=== PATIENT | male | born 1970 | race Hispanic/Latino ===

== ENCOUNTER 2022-01-29 19:39 | Observation (INO) | payer MEDICAID, OTHER ==
[~2022-01-29] VITALS: Ht 180.3 cm; Wt 88.1 kg
[2022-01-29 20:21] LABS: BASOPHILS % (AUTO) 0.5 % (0.0-5.0); EOSINOPHILS % (AUTO) 1.6 % (0.0-8.0); HEMATOCRIT 24.2 % (42-54); LYMPHOCYTES % (AUTO) 9.7 % (21.0-51.0); MEAN CORPUSCULAR HEMOGLOBIN 34.7 pg (27.0-33.0); MEAN CORPUSCULAR HGB CONC 34.7 g/dL (32.0-36.0); MONOCYTES % (AUTO) 9.7 % (3.0-13.0); NEUTROPHILS % (AUTO) 75.5 % (40.0-77.0); PLATELET COUNT (AUTO) 89 K/uL (130-400); RED BLOOD CELL COUNT(AUTO) 2.42 MIL/uL (4.50-6.20); RED CELL DISTRIBUTION WIDTH 14.7 % (11.0-15.5); WHITE BLOOD COUNT (AUTO) 12.4 K/uL (4.8-10.8)
[2022-01-29 20:29] LABS: CARBON DIOXIDE 22 mmol/L (21-32); CHLORIDE 98 mmol/L (101-111); CREATININE 1.9 mg/dL (0.5-1.5); GLOMERULAR FILTR. RATE CALC 40 mL/min (>60); GLUCOSE,RANDOM 109 mg/dL (70-105); POTASSIUM 3.5 mmol/L (3.5-5.1); SODIUM SERUM 129 mmol/L (136-145); UREA NITROGEN, BLOOD 27 mg/dL (7-18)
[2022-01-29 20:34] LABS: ALANINE AMINOTRANSFERASE 18 U/L (12-78); ALBUMIN 1.3 g/dL (3.5-5.0); ASPARTATE AMINOTRANSFERASE 52 U/L (10-37); TOTAL PROTEIN, SERUM 6.9 g/dL (6.0-8.3)
[2022-01-29 20:35] LABS: AMMONIA 86 umol/L (11-32)
[2022-01-29 21:14] LABS: PLATELET MORPHOLOGY DECREASED
[2022-01-29] MEDS ORDERED: HEPARIN 5,000 UNIT VIAL SQ SCH (21:30)
[2022-01-29] MEDS ORDERED: ASPIRIN 325MG EC TAB PO ONE (21:30)
[2022-01-29 22:00] LABS: APPEARANCE,URINE Cloudy (CLEAR); BILIRUBIN,URINE Small (NEGATIVE); COLOR,URINE Dark Yellow (YELLOW); GLUCOSE, URINE (UA) Negative (NEGATIVE); KETONES,URINE Negative (NEGATIVE); LEUKOCYTE ESTERASE ,URINE Trace (NEGATIVE); NITRATE,URINE Negative (NEGATIVE); OCCULT BLOOD,URINE Large (NEGATIVE); PH,URINE 5.5 (5.0-8.0); PROTEIN,URINE Trace mg/dL (NEGATIVE)
[2022-01-29 22:05] LABS: BACTERIA,URINE Few /HPF (None Seen)
[2022-01-29 22:06] LABS: SQUAMOUS EPITHELIAL CELL,UR Rare /HPF (0-2)
[2022-01-29] MEDS ORDERED: DOCUSATE SODIUM 100 MG CAP PO PRN (22:30)
[2022-01-29] MEDS ORDERED: ACETAMINOPHEN 650 MG SUPPOSITORY RC PRN (22:30)
[2022-01-29] MEDS ORDERED: ONDANSETRON 4MG INJ IVP PRN (22:30)
[2022-01-29] MEDS ORDERED: LACTULOSE 20 GM/30 ML UDCUP PO PRN (22:30)
[2022-01-29] MEDS ORDERED: LABETALOL 20MG SYG IV PRN (22:30)
[2022-01-29] MEDS ORDERED: HYDRALAZINE 20MG/ML VIAL IV PRN (22:30)
[2022-01-29] MEDS ORDERED: TEMAZEPAM 15 MG CAPSULE PO PRN (22:30)
[2022-01-29] MEDS ORDERED: CLONIDINE HCL 0.1 MG TABLET PO PRN (22:30)
[2022-01-29] MEDS ORDERED: ACETAMINOPHEN 325 MG TAB PO PRN (22:30)
[2022-01-29] MEDS: ATORVASTATIN 10 MG TABLET PO SCH (23:22)
[2022-01-29 23:40] VITALS: BP 128/68
[2022-01-30] VITALS (9 sets, daily range): BP systolic 97–122; BP diastolic 55–69
[2022-01-30] MEDS ORDERED: TORS10TA18 PO (01:08)
[2022-01-30] MEDS ORDERED: FERR325T29 PO (01:08)
[2022-01-30] MEDS ORDERED: SPIR50TA5 PO (01:08)
[2022-01-30] MEDS ORDERED: LACT10SO5 PO (01:08)
[2022-01-30 01:47] LABS: AMPHET/METH SCREEN,URINE NEGATIVE (NEGATIVE); BARBITURATE SCREEN, URINE NEGATIVE (NEGATIVE); BENZODIAZEPINES SCREEN,URINE NEGATIVE (NEGATIVE); CANNABINOID SCREEN,URINE NEGATIVE (NEGATIVE); COCAINE SCREEN,URINE NEGATIVE (NEGATIVE); OPIATE SCREEN,URINE POSITIVE (NEGATIVE); PHENCYCLIDINE SCREEN,URINE NEGATIVE (NEGATIVE)
[2022-01-30 04:13] LABS: BASOPHILS % (AUTO) 0.6 % (0.0-5.0); EOSINOPHILS % (AUTO) 1.9 % (0.0-8.0); HEMATOCRIT 23.2 % (42-54); LYMPHOCYTES % (AUTO) 14.4 % (21.0-51.0); MEAN CORPUSCULAR HEMOGLOBIN 34.2 pg (27.0-33.0); MEAN CORPUSCULAR HGB CONC 34.1 g/dL (32.0-36.0); MEAN CORPUSCULAR VOLUME 100.4 fL (79-99); MONOCYTES % (AUTO) 10.1 % (3.0-13.0); NEUTROPHILS % (AUTO) 70.9 % (40.0-77.0); PLATELET COUNT (AUTO) 80 K/uL (130-400); RED BLOOD CELL COUNT(AUTO) 2.31 MIL/uL (4.50-6.20); RED CELL DISTRIBUTION WIDTH 14.7 % (11.0-15.5); WHITE BLOOD COUNT (AUTO) 10.6 K/uL (4.8-10.8)
[2022-01-30 04:23] LABS: INR 1.67 (0.85-1.15); PROTHROMBIN TIME 17.7 SEC (9.6-11.6)
[2022-01-30 04:25] LABS: PARTIAL THROMBOPLASTIN TIME 38.2 SEC (26.3-35.5)
[2022-01-30 04:39] LABS: MAGNESIUM 1.3 mg/dL (1.80-2.40); PHOSPHORUS 3.4 mg/dL (2.5-4.9); THYROID STIMULATING HORMONE 4.79 uIU/mL (0.36-3.74)
[2022-01-30 05:06] LABS: B-TYPE NATRIURETIC PEPTIDE 846 pg/mL (0-100)
[2022-01-30] MEDS: LACTULOSE 20 GM/30 ML UDCUP PO SCH ×2 (06:00→13:52)
[2022-01-30] MEDS: PANTOPRAZOLE 40 MG/VIAL IVP SCH ×2 (09:02→21:20)
[2022-01-30] MEDS: ASPIRIN 81 MG EC TAB PO SCH (09:02)
[2022-01-30] MEDS: FOLIC ACID 1 MG TABLET PO SCH (09:03)
[2022-01-30] MEDS: FUROSEMIDE 40 MG TABLET PO SCH (09:03)
[2022-01-30] MEDS: TICAGRELOR 90 MG TABLET PO SCH ×2 (09:03→21:20)
[2022-01-30] MEDS ORDERED: LACTULOSE 20 GM/30 ML UDCUP PO PRN (17:00)
[2022-01-30] MEDS: ATORVASTATIN 10 MG TABLET PO SCH (21:20)
[2022-01-30] MEDS: CEFTRIAXONE 2GM VIAL IVP SCH (21:20)
[2022-01-31] VITALS (20 sets, daily range): BP systolic 100–120; BP diastolic 43–66
[2022-01-31 04:20] LABS: BASOPHILS % (AUTO) 0.4 % (0.0-5.0); EOSINOPHILS % (AUTO) 0.5 % (0.0-8.0); HEMATOCRIT 23.8 % (42-54); LYMPHOCYTES % (AUTO) 7.7 % (21.0-51.0); MEAN CORPUSCULAR HEMOGLOBIN 33.6 pg (27.0-33.0); MEAN CORPUSCULAR HGB CONC 33.6 g/dL (32.0-36.0); MONOCYTES % (AUTO) 9.5 % (3.0-13.0); NEUTROPHILS % (AUTO) 80.3 % (40.0-77.0); PLATELET COUNT (AUTO) 78 K/uL (130-400); RED BLOOD CELL COUNT(AUTO) 2.38 MIL/uL (4.50-6.20); RED CELL DISTRIBUTION WIDTH 14.8 % (11.0-15.5); WHITE BLOOD COUNT (AUTO) 12.7 K/uL (4.8-10.8)
[2022-01-31 04:50] LABS: ALBUMIN 1.1 g/dL (3.5-5.0); CREATININE 2.1 mg/dL (0.5-1.5); MAGNESIUM 1.5 mg/dL (1.80-2.40); POTASSIUM 4.2 mmol/L (3.5-5.1); TOTAL PROTEIN, SERUM 6.2 g/dL (6.0-8.3)
[2022-01-31] MEDS: ASPIRIN 81 MG EC TAB PO SCH (08:43)
[2022-01-31] MEDS: FOLIC ACID 1 MG TABLET PO SCH (08:43)
[2022-01-31] MEDS: FUROSEMIDE 40 MG TABLET PO SCH (08:43)
[2022-01-31] MEDS: PANTOPRAZOLE 40 MG/VIAL IVP SCH ×2 (08:43→20:42)
[2022-01-31] MEDS: TICAGRELOR 90 MG TABLET PO SCH ×2 (08:43→20:43)
[2022-01-31] MEDS ORDERED: MAGNESIUM 2GM PREMIX 50ML 50 ML IV SCH (14:30)
[2022-01-31] MEDS ORDERED: LEVOFLOXACIN 500 MG/D5W 100 ML 100 ML IV ONE (16:00)
[2022-01-31] MEDS ORDERED: LEVOFLOXACIN 500 MG/D5W 100 ML 100 ML IV SCH (16:00)
[2022-01-31] MEDS: CEFTRIAXONE 2GM VIAL IVP SCH (20:42)
[2022-01-31] MEDS: ATORVASTATIN 10 MG TABLET PO SCH (20:43)
[2022-02-01 04:00] VITALS: BP 114/62
[2022-02-01 04:03] VITALS: BP 123/56
[2022-02-01 04:06] VITALS: BP 116/64
[2022-02-01 04:55] LABS: BASOPHILS % (AUTO) 0.3 % (0.0-5.0); EOSINOPHILS % (AUTO) 0.8 % (0.0-8.0); HEMATOCRIT 24.8 % (42-54); LYMPHOCYTES % (AUTO) 6.9 % (21.0-51.0); MEAN CORPUSCULAR HEMOGLOBIN 33.9 pg (27.0-33.0); MEAN CORPUSCULAR HGB CONC 33.1 g/dL (32.0-36.0); MEAN CORPUSCULAR VOLUME 102.5 fL (79-99); MONOCYTES % (AUTO) 6.7 % (3.0-13.0); NEUTROPHILS % (AUTO) 83.9 % (40.0-77.0); PLATELET COUNT (AUTO) 84 K/uL (130-400); RED BLOOD CELL COUNT(AUTO) 2.42 MIL/uL (4.50-6.20); RED CELL DISTRIBUTION WIDTH 14.9 % (11.0-15.5); WHITE BLOOD COUNT (AUTO) 12.1 K/uL (4.8-10.8)
[2022-02-01 05:18] LABS: CREATININE 1.8 mg/dL (0.5-1.5); MAGNESIUM 1.9 mg/dL (1.80-2.40); POTASSIUM 3.5 mmol/L (3.5-5.1); TOTAL PROTEIN, SERUM 6.2 g/dL (6.0-8.3)
[2022-02-01 07:51] VITALS: BP 97/53
[2022-02-01 07:52] VITALS: BP 114/55
[2022-02-01] MEDS: TICAGRELOR 90 MG TABLET PO SCH (08:49)
[2022-02-01] MEDS: ASPIRIN 81 MG EC TAB PO SCH (08:49)
[2022-02-01] MEDS: FOLIC ACID 1 MG TABLET PO SCH (08:49)
[2022-02-01 08:50] VITALS: BP 120/65
[2022-02-01] MEDS: FUROSEMIDE 40 MG TABLET PO SCH (08:50)
[2022-02-01] MEDS: PANTOPRAZOLE 40 MG/VIAL IVP SCH (08:50)
== END 2022-02-01 09:20 | disposition left against medical advice (07) ==
LOC: EDH 19:39 → EDHIP 19:40 → 4BH 22:47
PROVIDERS: ADMIT Internal Medicine Critical Care Medicine; ATTEND Internal Medicine Critical Care Medicine
DX: I21.4 Non-ST elevation (NSTEMI) myocardial infarction (principal); Z20.822 Contact with and (suspected) exposure to COVID-19; I34.0 Nonrheumatic mitral (valve) insufficiency; I35.1 Nonrheumatic aortic (valve) insufficiency; N17.9 Acute kidney failure, unspecified; K74.60 Unspecified cirrhosis of liver; E72.20 Disorder of urea cycle metabolism, unspecified; D53.9 Nutritional anemia, unspecified; E87.1 Hypo-osmolality and hyponatremia; D61.818 Other pancytopenia; D72.829 Elevated white blood cell count, unspecified; E87.8 Other disorders of electrolyte and fluid balance, not elsewhere classified; R50.9 Fever, unspecified; R53.1 Weakness; I10 Essential (primary) hypertension; D63.8 Anemia in other chronic diseases classified elsewhere; I25.2 Old myocardial infarction; Z79.02 Long term (current) use of antithrombotics/antiplatelets; Z79.82 Long term (current) use of aspirin; Z79.899 Other long term (current) drug therapy; Z53.29 Procedure and treatment not carried out because of patient's decision for other reasons; Z88.0 Allergy status to penicillin
CPT/HCPCS: 96372; 84484 ×2; 80053 ×3; 80305; 82140 ×2; 85025 ×4; 81001; 36415 ×4; 99291; 93005 ×2; 96376 ×3; 96375; 84443; 83735 ×3; 84100; 83880; 85610; 85730; 87040 ×4; 87077 ×2; 87186 ×2; 83605; 87635; 96365; 96366; 96368; 71045; 87088; G0378 ×58; J1644; J0696 ×2; S0164 ×5; J3475; J1956; C9113